=== PATIENT | male | born 1955 | race Caucasian/White ===

== ENCOUNTER → 2017-10-23 17:34 | Outpatient (CLI) | payer MEDICARE | END | disposition home or self-care (01) | LOC: D.LABREF 17:34 | DX: M86.171 Other acute osteomyelitis, right ankle and foot (principal); S98.142A Partial traumatic amputation of one left lesser toe, initial encounter ==

== ENCOUNTER → 2017-12-04 15:14 | Outpatient (CLI) | payer MEDICARE | END | disposition home or self-care (01) | LOC: D.LABREF 15:14 | DX: L02.611 Cutaneous abscess of right foot (principal); E11.40 Type 2 diabetes mellitus with diabetic neuropathy, unspecified ==

== ENCOUNTER 2018-08-29 12:22 | Day surgery (SDC) | payer MEDICARE ==
[~2018-08-29] VITALS: Ht 185.4 cm; Wt 131.8 kg
[2018-08-29 13:19] LABS: HEMATOCRIT 41.9 % (42.0-54.0); HEMOGLOBIN 14.2 g/dL (13.5-17.5); MCH 31.6 pg (26.0-34.0); MCHC 33.9 g/dL (31.0-37.0); MCV 93.3 fL (80.0-100.0); MEAN PLATELET VOLUME 11.1 fL (7.4-10.4); RBC 4.49 10x6/uL (4.20-6.10); RDW 14.8 % (11.5-14.5); WBC 7.9 10x3/uL (4.8-10.8)
[2018-08-29 13:34] LABS: ANION GAP 14.2 mmol/L (8-16); CALCIUM 8.6 mg/dL (8.5-10.1); CARBON DIOXIDE 27.6 mmol/L (21.0-32.0); CREATININE - SERUM 1.1 mg/dL (0.6-1.3); POTASSIUM - SERUM 4.8 mmol/L (3.5-5.1)
[2018-08-29 13:36] VITALS: BP 147/84; Ht 185.4 cm; Wt 131.8 kg
[2018-08-29] MEDS ORDERED: ISOSORBIDE MONO30 M1 PO (13:44)
[2018-08-29] MEDS ORDERED: COREG12.5 MG PO (13:44)
[2018-08-29] MEDS ORDERED: PACERONE200 MG (13:44)
[2018-08-29] MEDS ORDERED: FUROSEMIDE40 MG PO (13:45)
[2018-08-29] MEDS ORDERED: GLUCOTROL XL 1010 MG PO (13:45)
[2018-08-29] MEDS ORDERED: LIPITOR80 MG (13:46)
[2018-08-29] MEDS ORDERED: COUMADIN5 MG PO (13:47)
[2018-08-29] MEDS ORDERED: ALDACTONE25 MG PO (13:47)
[2018-08-29] MEDS ORDERED: PAXIL20 MG PO (13:48)
[2018-08-29] MEDS ORDERED: FLOMAX0.4 MG PO (13:48)
[2018-08-29] MEDS ORDERED: ACIDOPHILUS-PE1 EACH PO (13:49)
[2018-08-29] MEDS ORDERED: BAYER CHEWABLE81 MG (13:50)
[2018-08-29] MEDS ORDERED: DULCOLAX STOOL100 MG PO (13:50)
[2018-08-29] MEDS ORDERED: MULTI-DAY VITAM1 TAB PO (13:51)
[2018-08-29] MEDS ORDERED: TRULICITY1.5 MG/0.5 SC (13:52)
[2018-08-29] MEDS ORDERED: TRESIBA FL100 UNIT/1 SC (13:52)
[2018-08-29] MEDS ORDERED: NOVOLOG100 UNIT/1 SC (13:53)
--- NOTE | 2018-08-29 16:35 | NUR ---
PATIENT AMBULATING AROUND ROOM WITHOUT UNSTEADINESS. RIGHT HAND PIV DC'D WITH TIP INTACT. PATIENT DRESSED IN PERSONAL CLOTHING. DISCHARGE INSTRUCTIONS REVIEWED WITH PATIENT AND SPOUSE. DISCHARGED HOME VIA WHEELCHAIR TO PRIVATE VEHICLE WITH SPOUSE
--- NOTE | 2018-08-30 17:19 | OP ---
PATIENT NAME: MARY ANN AYALA MEDICAL RECORD: [id number] :55 LOCATION:[facility] ADMISSION DATE: SURGEON: URBANO CABAN MD DATE OF OPERATION: 08/29/2018 PROCEDURE: Colonoscopy with polypectomy. REFERRING PHYSICIAN: El Crane MD INDICATIONS: Mr. Ayala is a delightful 63-year-old gentleman with a history of colon polyps and a family history of colon cancer. He had an EGD and colonoscopy on 05/21/2014 with findings showing a small sliding type hiatal hernia, mild gastritis, minimal nonspecific erythema involving the ascending colon, proximal descending colon polyp, minimal internal hemorrhoids; colon polyp was a tubular adenoma. He presents for outpatient surveillance colonoscopy. PREMEDICATIONS: Total IV anesthesia (ASA 4, cardiomyopathy, paroxysmal atrial fibrillation, sick sinus syndrome, myocardial infarction), propofol 280 mg. INSTRUMENT: [employer] [address] video colonoscope, pediatric. PROCEDURE AND FINDINGS: After receiving informed consent, Mr. Ayala was placed in left lateral decubitus position, sedated as per anesthesia. After achieving an adequate level of sedation, digital rectal exam was performed that showed no external hemorrhoidal tags, fissures, or fistulas. Normal sphincter tone. No palpable rectal masses. The prostate was not enlarged, smooth, without palpable nodules. The colonoscope was introduced per rectally and advanced to the cecum without difficulty. The cecum, IC valve, and appendiceal orifice were identified and appeared normal. As the colonoscope was withdrawn, careful inspection was made of the amanda of the colon. Overall mucosa had normal vascular and fold pattern. Within the proximal ascending colon was a 0.5-cm sessile polyp removed with hot biopsy forcep technique. Retroflexion in the rectum showed a small hemorrhoidal tag. There were no fissures noted. A good prep was present. Mr. Ayala tolerated the procedure well. No immediate complications. Withdrawal time was 10 minutes. ASSESSMENT: 1. Small proximal ascending colon polyp, status post polypectomy. 2. Minimal internal hemorrhoids. RECOMMENDATIONS: 1. Follow up histopathology. 2. Avoid aspirin, nonsteroidal anti-inflammatory drugs, and SANTORO-2 inhibitors for 14 days post polypectomy. 3. Resume Coumadin today. 4. Surveillance colonoscopy in 3 years pending nature of polyp histopathology. TRANSINT:[id number] Voice Confirmation ID: [id number] DOCUMENT ID: [id number] OPERATIVE REPORT [id number] MARY ANN AYALA TERRI MD at 1719 CC: EL CRANE [id number] DICTATION DATE: 08/29/18 153 PARTS ROOM ASSOCIATE: 08/29/18 2353 DEP SD 08/29/18 [place] [id number] [place] [id number]
== END 2018-08-29 16:40 | disposition home or self-care (01) ==
LOC: D.OPS 12:22
PROVIDERS: Anesthesiology; ATTEND Internal Medicine Gastroenterology
DX: K63.5 Polyp of colon (principal)

== ENCOUNTER → 2019-08-13 13:32 | Outpatient (CLI) | payer MEDICARE ==
[2018-08-29 13:36] VITALS: BMI 38.3
[~2019-08-13 13:32] MED LIST: ACIDOPHILUS-PE1 EACH PO; ALDACTONE25 MG PO; BAYER CHEWABLE81 MG; COREG12.5 MG PO; COUMADIN5 MG PO; DULCOLAX STOOL100 MG PO; FLOMAX0.4 MG PO; FUROSEMIDE40 MG PO; GLUCOTROL XL 1010 MG PO; ISOSORBIDE MONO30 M1 PO; LIPITOR80 MG; MULTI-DAY VITAM1 TAB PO; NOVOLOG100 UNIT/1 SC; PACERONE200 MG; PAXIL20 MG PO; TRESIBA FL100 UNIT/1 SC; TRULICITY1.5 MG/0.5 SC
== END | disposition home or self-care (01) ==
LOC: D.LABREF 13:32
PROVIDERS: ATTEND Podiatrist Foot & Ankle Surgery
DX: L03.115 Cellulitis of right lower limb (principal); L02.611 Cutaneous abscess of right foot

== ENCOUNTER → 2020-02-27 16:53 | Outpatient (CLI) | payer MEDICARE ==
[2018-08-29 13:36] VITALS: BMI 38.3
== END | disposition home or self-care (01) ==
LOC: D.LABREF 16:53
PROVIDERS: ATTEND Podiatrist Foot & Ankle Surgery
DX: L03.115 Cellulitis of right lower limb (principal)

== ENCOUNTER → 2020-11-05 17:01 | Outpatient (CLI) | payer MEDICARE ==
[2018-08-29 13:36] VITALS: BMI 38.3
== END | disposition home or self-care (01) ==
LOC: D.LABREF 17:01
PROVIDERS: ATTEND Podiatrist Foot & Ankle Surgery
DX: L03.116 Cellulitis of left lower limb (principal)